=== PATIENT | female | born 1995 ===

== ENCOUNTER 2017-06-22 10:28 | Emergency (ER) | payer MEDICAID ==
[2017-06-22 10:35] VITALS: BMI 17.6
[2017-06-22] MEDS ORDERED: Sodium Chloride 0.9% 1,000 ML IV STA (11:07)
--- NOTE | 2017-06-22 11:14 | ED PDOC ---
HPI: General Adult Time Seen by Provider: 06/22/17 10:30 Chief Complaint (Nursing): GI Problem Chief Complaint (Provider): generalized weakness History Per: Patient History/Exam Limitations: no limitations Additional Complaint(s): Snehal Perez is a 21 year old female, with no previous medical history, who presents to the ED for the evaluation of generalized weakness associated with nausea and vomiting after taking a pain medication from [place] for her menstrual cramps this morning. She denies any fever or chills. She reports craps have resolved with the medication. PMD: none provided Past Medical History Reviewed: Historical Data, Nursing Documentation, Vital Signs Vital Signs: Last Vital Signs Temp 98.4 F 06/22/17 14:14 Pulse 68 06/22/17 14:14 Resp 18 06/22/17 14:14 BP 107/64 06/22/17 14:14 Pulse Ox 99 06/22/17 14:14 - Medical History PMH: No Chronic Diseases, Obstructive Bowel - Surgical History Surgical History: No Surg Hx - Family History Family History: States: Unknown Family Hx - Social History Current smoker - smoking cessation education provided: No Alcohol: None Drugs: Denies - Immunization History Hx Tetanus Toxoid Vaccination: No Hx Influenza Vaccination: No Hx Pneumococcal Vaccination: No - Home Medications Home Medications: Ambulatory Orders Medication Instructions Recorded No Known Home Med 06/22/17 - Allergies Allergies/Adverse Reactions: Allergies Allergy/AdvReac Type Severity Reaction Status Date / Time No Known Allergies Allergy Verified 06/22/17 10:40 Review of Systems ROS Statement: Except As Marked, All Systems Reviewed And Found Negative Constitutional: Positive for: Weakness (generalized). Negative for: Fever, Chills Gastrointestinal: Positive for: Nausea, Vomiting. Negative for: Abdominal Pain Physical Exam - Reviewed Nursing Documentation Reviewed: Yes Vital Signs Reviewed: Yes - Physical Exam Appears: Positive for: Non-toxic, No Acute Distress. Negative for: Well ( appears weak) Head Exam: Positive for: ATRAUMATIC, NORMAL INSPECTION, NORMOCEPHALIC Skin: Positive for: Normal Color, Warm, DRY Eye Exam: Positive for: EOMI, Normal appearance, PERRL ENT: Positive for: Normal ENT Inspection Neck: Positive for: Normal, Painless ROM Cardiovascular/Chest: Positive for: Regular Rate, Rhythm Respiratory: Positive for: CNT, Normal Breath Sounds Gastrointestinal/Abdominal: Positive for: Normal Exam, Bowel Sounds, Soft Back: Positive for: Normal Inspection Extremity: Positive for: Normal ROM Neurologic/Psych: Positive for: Alert, Oriented - Laboratory Results Result Diagrams: 06/22/17 11:18 06/22/17 11:18 - ECG O2 Sat by Pulse Oximetry: 100 (RA) Pulse Ox Interpretation: Normal Medical Decision Making Medical Decision Making: Initial Impression: generalized weakness r/o UTI vs anemia Initial Plan: * urine culture * urinalysis * zofran 4mg IV * IV NS 1,000 ml at 999 ml/hr * urine * labs * reevaluation Reevaluation- pt feels better, tolerating po. urine shows pt is menstruating labs basically ok pt feels better and vitals stable Scribe Attestation: Documented by Rebecca Arita, acting as a scribe for Lita Britton MD. Provider Scribe Attestation: All medical record entries made by the Scribe were at my direction and personally dictated by me. I have reviewed the chart and agree that the record accurately reflects my personal performance of the history, physical exam, medical decision making, and the department course for this patient. I have also personally directed, reviewed, and agree with the discharge instructions and disposition. Disposition - Clinical Impression Clinical Impression: General weakness - Patient ED Disposition Is Patient to be Admitted: No Counseled Patient/Family Regarding: Studies Performed, Diagnosis, Need For Followup - Disposition Referrals: [facility] [Outside] [facility] [Outside] Disposition: Routine/Home Disposition Time: 12:00 Condition: IMPROVED Additional Instructions: follow up with your primary doctor in 1-2 days return to the ED with any worsening or concerning symptoms. Instructions: Weakness (ED) Forms: [employer] (Estonian)
[2017-06-22 11:29] LABS: BASO % 0.5 % (0.0-2.0); EOS # 0.2 K/uL (0.0-0.7); EOS % 2.2 % (0.0-4.0); HEMOGLOBIN 12.6 g/dL (12.0-16.0); LYMPH % 12.9 % (20.0-40.0); MEAN CELL VOLUME 85.6 fl (81.0-99.0); MEAN CORPUSCULAR HGB CONC 32.7 g/dL (33.0-37.0); MEAN PLATELET VOLUME 9.3 fl (7.2-11.7); MONO # 0.5 K/uL (0.0-0.8); MONO % 6.1 % (0.0-10.0); NEUT % 78.3 % (50.0-75.0); RBC 4.51 Mil/uL (3.80-5.20); RED CELL DISTRIBUTION WIDTH 15.2 % (11.5-14.5); WHITE BLOOD COUNT 7.7 K/uL (4.8-10.8)
[2017-06-22 11:37] LABS: ALB/GLOB RATIO 1.4 (1.0-2.1); ALBUMIN 4.5 g/dL (3.5-5.0); ALT/SGPT 19 U/L (9-52); AST/SGOT 25 U/L (14-36); BLOOD UREA NITROGEN 12 mg/dl (7-17); CALCIUM 9.1 mg/dL (8.4-10.2); GFR AFRICAN-AMERICAN > 60; GFR NON-AFRICAN AMERICAN > 60
[2017-06-22 11:41] LABS: SQUAMOUS EPITHIAL 4 /hpf (0-5); URINE BACTERIA MOD (<OCC); URINE BILIRUBIN NEGATIVE (NEGATIVE); URINE BLOOD LARGE (NEGATIVE); URINE CLARITY TURBID (Clear); URINE COLOR RED (YELLOW); URINE GLUCOSE (UA) NEG (Normal); URINE LEUKOCYTE ESTERASE NEG Leu/uL (Negative); URINE NITRATE NEGATIVE (NEGATIVE); URINE PROTEIN 100 mg/dL (NEGATIVE); URINE UROBILINOGEN 0.2-1.0 mg/dL (0.2-1.0)
[2017-06-22 14:15] VITALS: BP 107/64; PULSE 68; RESP 18; TEMP 98.4
[2017-06-22 16:54] VITALS: O2SAT 100
== END 2017-06-22 14:31 | disposition home or self-care (01) ==
LOC: H.ER 10:28
DX: M62.81 Muscle weakness (generalized) (principal)

== ENCOUNTER 2017-11-15 10:24 | Emergency (ER) | payer MEDICAID ==
[2017-11-15 10:24] VITALS: BMI 17.6
[2017-11-15 10:35] VITALS: RESP 17; O2SAT 98
--- NOTE | 2017-11-15 11:59 | ED PDOC ---
HPI: Psych/Substance Abuse Time Seen by Provider: 11/15/17 10:37 Chief Complaint (Nursing): Psychiatric Evaluation Chief Complaint (Provider): jaun ambriz Additional Complaint(s): 22yo F in Ed for eval -sent a text to her mother stating she didn't feel well and wanted to -states she didn't mean that and states that she wanted to talk to someone. states she broke up with her boyfriend of 7 years. denies SI/ HI Past Medical History Reviewed: Historical Data, Nursing Documentation, Vital Signs Vital Signs: Last Vital Signs Temp 98 F 11/15/17 10:30 Pulse 67 11/15/17 10:30 Resp 17 11/15/17 10:30 BP Pulse Ox 98 11/15/17 10:30 - Medical History PMH: Obstructive Bowel - Family History Family History: States: Unknown Family Hx - Immunization History Hx Tetanus Toxoid Vaccination: No Hx Influenza Vaccination: No Hx Pneumococcal Vaccination: No - Home Medications Home Medications: Ambulatory Orders Medication Instructions Recorded No Known Home Med 06/22/17 - Allergies Allergies/Adverse Reactions: Allergies Allergy/AdvReac Type Severity Reaction Status Date / Time No Known Allergies Allergy Verified 06/22/17 10:40 Review of Systems ROS Statement: Except As Marked, All Systems Reviewed And Found Negative Genitourinary Female: Negative for: Dysuria Physical Exam - Reviewed Nursing Documentation Reviewed: Yes Vital Signs Reviewed: Yes - Physical Exam Appears: Positive for: Well, Non-toxic, No Acute Distress Skin: Positive for: Normal Color, Warm, DRY Cardiovascular/Chest: Positive for: Regular Rate, Rhythm Respiratory: Positive for: CNT, Normal Breath Sounds Neurologic/Psych: Positive for: Alert, Oriented, Mood/Affect - ECG O2 Sat by Pulse Oximetry: 98 - Progress ED Course And Treament: Pt is stable for d/c under adjustment d/o under MD Princess Medical Decision Making Medical Decision Making: PT is stable for d/c Disposition - Clinical Impression Clinical Impression: Adjustment disorder - Patient ED Disposition Is Patient to be Admitted: No Counseled Patient/Family Regarding: Need For Followup - Disposition Disposition: Routine/Home Disposition Time: 12:01 Condition: STABLE Instructions: Mood Disorders (ED)
[2017-11-15 12:28] VITALS: BP 178/70; PULSE 78; TEMP 97
== END 2017-11-15 12:29 | disposition home or self-care (01) ==
LOC: H.ER 10:24
DX: F43.20 Adjustment disorder, unspecified (principal); Z00.8 Encounter for other general examination

== ENCOUNTER 2018-01-03 20:20 | Emergency (ER) | payer MEDICAID ==
[2018-01-03 20:21] VITALS: BMI 17.6
[2018-01-03 20:41] VITALS: BP 132/75; PULSE 72; RESP 16; TEMP 99.3; O2SAT 99
--- NOTE | 2018-01-03 20:58 | ED PDOC ---
HPI: Back Time Seen by Provider: 01/03/18 20:51 Chief Complaint (Nursing): Back Pain Chief Complaint (Provider): Back Pain History Per: Patient (() History/Exam Limitations: no limitations Onset/Duration Of Symptoms: Other (x 1 week) Current Symptoms Are (Timing): Still Present Additional Complaint(s): Snehal is a 22 year old female who presents to the emergency department complaining of intermittent right lower back pain for 1 week. Patient states she has similar symptoms from a kidney infection she had 5 years ago. Patient states she took 2 Advil 200 mg at 11:00 today. Denies trouble urinating or fever. PMD: Bk [facility] Past Medical History Reviewed: Historical Data, Nursing Documentation, Vital Signs Vital Signs: Last Vital Signs Temp 99.3 F 01/03/18 20:33 Pulse 72 01/03/18 20:33 Resp 16 01/03/18 20:33 BP 132/75 01/03/18 20:33 Pulse Ox 99 01/03/18 20:33 - Medical History PMH: Obstructive Bowel Denies: Diabetes, Hepatitis, HIV, HTN, Seizures, Sexually Transmitted Disease - Surgical History Surgical History: No Surg Hx - Family History Family History: States: Unknown Family Hx - Immunization History Hx Tetanus Toxoid Vaccination: No Hx Influenza Vaccination: No Hx Pneumococcal Vaccination: No - Home Medications Home Medications: Ambulatory Orders Medication Instructions Recorded Naproxen 1 tab PO Q12 PRN #14 tab 01/03/18 diaZEpam [Valium] 5 mg PO Q6 PRN #5 tab 01/03/18 - Allergies Allergies/Adverse Reactions: Allergies Allergy/AdvReac Type Severity Reaction Status Date / Time No Known Allergies Allergy Verified 06/22/17 10:40 Review of Systems ROS Statement: Except As Marked, All Systems Reviewed And Found Negative Constitutional: Negative for: Fever Genitourinary Female: Negative for: Other (Trouble urinating) Musculoskeletal: Positive for: Back Pain (Right lower) Physical Exam - Reviewed Nursing Documentation Reviewed: Yes Vital Signs Reviewed: Yes - Physical Exam Appears: Positive for: Well Head Exam: Positive for: ATRAUMATIC, NORMAL INSPECTION, NORMOCEPHALIC Skin: Positive for: Normal Color, Warm, Dry Eye Exam: Positive for: Normal appearance, EOMI, PERRL ENT: Positive for: Normal ENT Inspection Neck: Positive for: Normal Cardiovascular/Chest: Positive for: Regular Rate, Rhythm Respiratory: Positive for: Normal Breath Sounds. Negative for: Respiratory Distress Gastrointestinal/Abdominal: Positive for: Normal Exam, Bowel Sounds. Negative for: Tenderness Back: Positive for: Other (Right Paralumbar Muscular Pain) Extremity: Positive for: Normal ROM. Negative for: Deformity Neurologic/Psych: Positive for: Alert, Oriented. Negative for: Motor/Sensory Deficits - Laboratory Results Result Diagrams: 01/03/18 22:00 01/03/18 22:00 Urine POC: Negative Urine dip results: Negative for: Leukocyte Esterase, Blood, Nitrate, Ketones, Glucose, Bilirubin, Protein - ECG O2 Sat by Pulse Oximetry: 99 (RA) Pulse Ox Interpretation: Normal - Progress ED Course And Treament: TORADOL 30 MG IM X 1 DOSE VALIUM 5 MG X 1 DOSE PATIENT ADAMANT THAT SHE HAS H/O PYELONEPHRITIS THAT BEGAN SIMILAR TO TODAYS PRESENTATION/PAIN us of kidneY: FINDINGS: The right kidney measures 10 cm in length. The left kidney measures 9.5 cm in length. No masses. No hydronephrosis. No calculi. Nonvisualization of the ureteral jets. IMPRESSION: No acute findings. Thank you for allowing us to participate in the care of your patient. Dictated and Authenticated by: Rebecca Jaimes MD Medical Decision Making Medical Decision Making: Time: 20:53 Plan: - Urine Culture - Urinalysis - ED Urine - ED Urine Dipstick Time: 21:14 - Toradol 30 mg IM - Valium 5 mg PO Patient would like further testing for possible kidney infection. Scribe Attestation: Documented by Abiel Mann, acting as a scribe for Lucia Fernandez PA-C. Provider Scribe Attestation: All medical record entries made by the Scribe were at my direction and personally dictated by me. I have reviewed the chart and agree that the record accurately reflects my personal performance of the history, physical exam, medical decision making, and the department course for this patient. I have also personally directed, reviewed, and agree with the discharge instructions and disposition. Disposition - Clinical Impression Clinical Impression: Muscle strain - Patient ED Disposition Is Patient to be Admitted: No - Disposition Referrals: [facility] [Outside] Disposition: Routine/Home Disposition Time: 23:31 Condition: FAIR Prescriptions: diaZEpam [Valium] 5 mg PO Q6 PRN #5 tab PRN Reason: Muscle Spasm Naproxen 1 tab PO Q12 PRN #14 tab PRN Reason: Pain, Moderate (4-7) Instructions: Muscle Strain (ED) Forms: [facility] (Bengali), [facility] ED School/Work Excuse
[2018-01-03 22:00] LABS: SQUAMOUS EPITHIAL 1 /hpf (0-5); URINE BACTERIA OCC (<OCC); URINE BILIRUBIN NEGATIVE (NEGATIVE); URINE BLOOD NEGATIVE (NEGATIVE); URINE CLARITY CLEAR (Clear); URINE COLOR STRAW (YELLOW); URINE GLUCOSE (UA) NEG (Normal); URINE LEUKOCYTE ESTERASE NEG Leu/uL (Negative); URINE NITRATE NEGATIVE (NEGATIVE); URINE PROTEIN NEGATIVE (NEGATIVE); URINE UROBILINOGEN 0.2-1.0 mg/dL (0.2-1.0)
[2018-01-03 22:13] LABS: BASO # 0.1 K/uL (0.0-0.2); BASO % 0.9 % (0.0-2.0); EOS # 0.2 K/uL (0.0-0.7); EOS % 3.2 % (0.0-4.0); LYMPH # 1.9 K/uL (1.0-4.3); LYMPH % 26.5 % (20.0-40.0); MEAN CELL VOLUME 86.1 fl (81.0-99.0); MEAN CORPUSCULAR HEMOGLOBIN 27.2 pg (27.0-31.0); MEAN CORPUSCULAR HGB CONC 31.6 g/dL (33.0-37.0); MEAN PLATELET VOLUME 9.8 fl (7.2-11.7); MONO # 0.7 K/uL (0.0-0.8); MONO % 9.3 % (0.0-10.0); NEUT # 4.3 K/uL (1.8-7.0); NEUT % 60.1 % (50.0-75.0); NRBC % 0.1 % (0.0-0.0); RBC 4.77 Mil/uL (3.80-5.20); RED CELL DISTRIBUTION WIDTH 14.8 % (11.5-14.5); WHITE BLOOD COUNT 7.1 K/uL (4.8-10.8)
[2018-01-03 22:23] LABS: BLOOD UREA NITROGEN 10 mg/dl (7-17); CALCIUM 9.2 mg/dL (8.4-10.2); GFR AFRICAN-AMERICAN > 60; GFR NON-AFRICAN AMERICAN > 60
--- NOTE | 2018-01-03 23:21 | US ---
EXAM: US Retroperitoneal Ltd Kidney EXAM DATE/TIME: 01/03/2018 9:29 PM CLINICAL HISTORY: 22 years old, female; Pain; Abdominal pain; Other: Rt side back pain as per pt. ; Additional info: Evaluate for hydronephrosis TECHNIQUE: Real-time ultrasound of the retroperitoneal ltd kidney with image documentation. COMPARISON: US - ABDOMEN LIMITED 2016-02-24 15:32 FINDINGS: The right kidney measures 10 cm in length. The left kidney measures 9.5 cm in length. No masses. No hydronephrosis. No calculi. Nonvisualization of the ureteral jets. IMPRESSION: No acute findings.
== END 2018-01-03 23:59 | disposition home or self-care (01) ==
LOC: H.ER 20:20
DX: M54.9 Dorsalgia, unspecified (principal)
CPT/HCPCS: 76770; 80048; 81003; 81025; 85025; 87086; 96374; 99282; J1885

== ENCOUNTER 2018-03-27 08:44 | Emergency (ER) | payer MEDICAID ==
[2018-03-27 08:45] VITALS: BMI 17.6
[2018-03-27 08:54] VITALS: PULSE 100; RESP 20; TEMP 97.8; O2SAT 98
[2018-03-27] MEDS ORDERED: Oxycodone/Acetaminophen 5/325 mg Tab ONE (09:44)
[2018-03-27] MEDS: Oxycodone/Acetaminophen 5/325 mg Tab PO STA (09:45)
--- NOTE | 2018-03-27 09:53 | ED PDOC ---
Upper Extremity Pain/Injury Time Seen by Provider: 03/27/18 09:17 Chief Complaint (Nursing): Upper Extremity Problem/Injury Chief Complaint (Provider): Right wrist pain History Per: Patient History/Exam Limitations: no limitations Onset/Duration Of Symptoms: Days (x1) Current Symptoms Are (Timing): Still Present Quality: "Pain" Exacerbating Factor(s): Movement Additional Complaint(s): Snehal Perez is a 22 year old female, with no significant past medical history, who presents to the emergency department complaining of right wrist pain onset since yesterday. Patient states pain is worst with movement. She took Naproxen with no relief of pain. Patient reports she had a similar pain x1 week ago but it resolved, and mother states patient used to have a similar pain as a kid. She denies any trauma or injury. No further medical complaints. PMD: None provided. Past Medical History Reviewed: Historical Data, Nursing Documentation, Vital Signs Vital Signs: Last Vital Signs Temp 97.8 F 03/27/18 08:52 Pulse 100 H 03/27/18 08:52 Resp 20 03/27/18 08:52 BP Pulse Ox 98 03/27/18 08:52 - Medical History PMH: Obstructive Bowel Denies: Diabetes, Hepatitis, HIV, HTN, Seizures, Sexually Transmitted Disease - Surgical History Surgical History: No Surg Hx - Family History Family History: States: Unknown Family Hx - Living Arrangements Living Arrangements: With Family - Social History Current smoker - smoking cessation education provided: No Alcohol: None Drugs: Denies - Immunization History Hx Tetanus Toxoid Vaccination: No Hx Influenza Vaccination: No Hx Pneumococcal Vaccination: No - Home Medications Home Medications: Ambulatory Orders Medication Instructions Recorded Naproxen 1 tab PO Q12 PRN #14 tab 01/03/18 diaZEpam [Valium] 5 mg PO Q6 PRN #5 tab 01/03/18 Acetaminophen with Codeine 1 tab PO Q6H PRN #5 tab 03/27/18 [Tylenol with Codeine No. 3 300 mg-30 mg] Naproxen [Naprosyn] 500 mg PO BID PRN #15 tablet 03/27/18 - Allergies Allergies/Adverse Reactions: Allergies Allergy/AdvReac Type Severity Reaction Status Date / Time No Known Allergies Allergy Verified 03/27/18 08:59 Review of Systems ROS Statement: Except As Marked, All Systems Reviewed And Found Negative Musculoskeletal: Positive for: Hand Pain (right wrist) Physical Exam - Reviewed Nursing Documentation Reviewed: Yes Vital Signs Reviewed: Yes - Physical Exam Appears: Positive for: Non-toxic, No Acute Distress Head Exam: Positive for: ATRAUMATIC, NORMOCEPHALIC Skin: Positive for: Normal Color, Warm, Dry Eye Exam: Positive for: Normal appearance Neck: Positive for: Painless ROM Respiratory: Negative for: Respiratory Distress Extremity: Positive for: Tenderness (right wrist and posterior thumb ). Negative for: Deformity, Swelling Neurologic/Psych: Positive for: Alert, Oriented. Negative for: Motor/Sensory Deficits - ECG O2 Sat by Pulse Oximetry: 98 (RA) Pulse Ox Interpretation: Normal Medical Decision Making Medical Decision Making: Initial Impression: wrist pain Initial Plan: --Urine --Percocet 5/325 mg tab 1 tab PO --Toradol 30 mg IM --Hand right 3 views [RAD] --Wrist, right 3 views [RAD] --Reevaluation 10:16 Wrist X-Ray FINDINGS: BONES: No acute fracture. JOINTS: Unremarkable. SOFT TISSUES: Normal. OTHER FINDINGS: None. IMPRESSION: No demonstrated fracture or dislocation. 10:16 Hand X-Ray FINDINGS: BONES: No acute fracture. JOINTS: Unremarkable. SOFT TISSUES: Normal. OTHER FINDINGS: None. IMPRESSION: No demonstrated fracture dislocation. Wrist splint placed. Scribe Attestation: Documented by Maninder Green, acting as a scribe for Rebecca Ashraf MD Provider Scribe Attestation: All medical record entries made by the Scribe were at my direction and personally dictated by me. I have reviewed the chart and agree that the record accurately reflects my personal performance of the history, physical exam, medical decision making, and the department course for this patient. I have also personally directed, reviewed, and agree with the discharge instructions and disposition. Disposition - Clinical Impression Clinical Impression: Wrist pain, acute - Disposition Referrals: Tiffanie Sellers MD [Family Provider] - Condition: IMPROVED Prescriptions: Acetaminophen with Codeine [Tylenol with Codeine No. 3 300 mg-30 mg] 1 tab PO Q6H PRN #5 tab PRN Reason: Pain, Severe (8-10) Naproxen [Naprosyn] 500 mg PO BID PRN #15 tablet PRN Reason: Pain, Moderate (4-7) Instructions: Joint Pain Forms: [facility] (Albanian), [facility] ED School/Work Excuse
--- NOTE | 2018-03-27 10:18 | RAD ---
PROCEDURE: Right Wrist Radiographs. HISTORY: Wrist pain COMPARISON: None. FINDINGS: BONES: No acute fracture. JOINTS: Unremarkable. SOFT TISSUES: Normal. OTHER FINDINGS: None. IMPRESSION: No demonstrated fracture or dislocation.
== END 2018-03-27 11:33 | disposition home or self-care (01) ==
LOC: H.ER 08:44
DX: M25.531 Pain in right wrist (principal)
CPT/HCPCS: 29125; 73110; 73130; 81025; 96372; 99284; J1885

== ENCOUNTER 2019-03-17 06:12 | Emergency (ER) | payer MEDICAID, OTHER ==
[2019-03-17 06:21] VITALS: BMI 18.7
[2019-03-17 06:25] VITALS: TEMP 98.5
[2019-03-17] MEDS ORDERED: Iohexol 240 (50 ml) PO ONE (06:52)
--- NOTE | 2019-03-17 06:55 | ED PDOC ---
HPI: Abdomen Time Seen by Provider: 03/17/19 06:28 Chief Complaint (Nursing): Abdominal Pain History Per: Patient History/Exam Limitations: no limitations Onset/Duration Of Symptoms: Days (1), Persistent Outside of [place] travel?: No Current Symptoms Are (Timing): Still Present Severity: Moderate Pain Scale Rating Of: 4 Location Of Pain/Discomfort: Diffuse, RLQ Quality Of Discomfort: Dull Associated Symptoms: denies: Fever, Nausea, Vomiting, Diarrhea, Loss Of Appetite, Constipation, Urinary Symptoms Exacerbating Factors: Movement Alleviating Factors: None Last Bowel Movement: Yesterday Abnormal Vaginal Bleeding: No Last Menstral Period: now Past Medical History Reviewed: Historical Data, Nursing Documentation, Vital Signs Vital Signs: Last Vital Signs Temp 98.5 F 03/17/19 06:21 Pulse 92 H 03/17/19 06:21 Resp 18 03/17/19 06:21 BP 109/64 03/17/19 06:21 Pulse Ox 98 03/17/19 06:21 - Medical History PMH: Obstructive Bowel Denies: Diabetes, Hepatitis, HIV, HTN, Seizures, Sexually Transmitted Disease - Surgical History Surgical History: No Surg Hx - Family History Family History: States: Unknown Family Hx - Immunization History Hx Tetanus Toxoid Vaccination: No Hx Influenza Vaccination: No Hx Pneumococcal Vaccination: No - Home Medications Home Medications: Ambulatory Orders Medication Instructions Recorded Naproxen 1 tab PO Q12 PRN #14 tab 01/03/18 diaZEpam [Valium] 5 mg PO Q6 PRN #5 tab 01/03/18 Acetaminophen with Codeine 1 tab PO Q6H PRN #5 tab 03/27/18 [Tylenol with Codeine No. 3 300 mg-30 mg] Naproxen [Naprosyn] 500 mg PO BID PRN #15 tablet 03/27/18 Naproxen [Naprosyn] 500 mg PO Q12H #20 tab 03/17/19 - Allergies Allergies/Adverse Reactions: Allergies Allergy/AdvReac Type Severity Reaction Status Date / Time No Known Allergies Allergy Verified 03/17/19 06:21 Review of Systems ROS Statement: Except As Marked, All Systems Reviewed And Found Negative Physical Exam - Reviewed Nursing Documentation Reviewed: Yes Vital Signs Reviewed: Yes - Physical Exam Appears: Positive for: Uncomfortable Head Exam: Positive for: ATRAUMATIC, NORMAL INSPECTION Skin: Positive for: Normal Color, Warm, Dry Eye Exam: Positive for: Normal appearance, EOMI ENT: Positive for: Normal ENT Inspection Neck: Positive for: Normal, Painless ROM Cardiovascular/Chest: Positive for: Regular Rate, Rhythm Respiratory: Positive for: Normal Breath Sounds. Negative for: Respiratory Distress Gastrointestinal/Abdominal: Positive for: Soft, Tenderness (RLQ) Back: Positive for: Normal Inspection. Negative for: L CVA Tenderness, R CVA Tenderness Extremity: Positive for: Normal ROM Neurological/Psych: Positive for: Awake, Alert - Laboratory Results Result Diagrams: 03/17/19 06:50 03/17/19 06:50 - ECG O2 Sat by Pulse Oximetry: 98 Medical Decision Making Medical Decision Making: Impression Abdominal pain Diff include Acute appendicitis, ovarian cyst with rupture, ovarian torsion, Preg negative. Plan Labs Udip CT abdomen with PO and IV contrast IVF Toradol IV reassess Disposition - Clinical Impression Clinical Impression: Abdominal pain, Ovarian cyst - Patient ED Disposition Is Patient to be Admitted: Transfer of Care Counseled Patient/Family Regarding: Studies Performed, Diagnosis - Disposition [facility] Disposition: Transfer of Care Disposition Time: 07:00 Condition: FAIR Prescriptions: Naproxen [Naprosyn] 500 mg PO Q12H #20 tab Instructions: Ovarian Cysts Forms: [employer] (Beninese), [facility] ED School/Work Excuse Patient Signed Over To: Toño Hendricks
[2019-03-17] MEDS ORDERED: Sodium Chloride 0.9% 1,000 ML IV STA (06:57)
--- NOTE | 2019-03-17 07:06 | ED PDOC ---
- Laboratory Results Result Diagrams: 03/17/19 06:50 03/17/19 06:50 - ECG O2 Sat by Pulse Oximetry: 98 (RA) Pulse Ox Interpretation: Normal - Progress Re-evaluation Time: 10:19 Condition: Improved Medical Decision Making Medical Decision Making: Time: 0700 --Patient care endorsed by Dr. Guthrie pending full ER work up. Time: 0920 Transvaginal US FINDINGS: UTERUS: Measures 7.8 x 5.3 x 3.6 cm. Normal in size and appearance. No fibroid or other mass lesion seen. ENDOMETRIUM: Measures 8 mm in diameter. Unremarkable. CERVIX: No cervical abnormality identified. RIGHT OVARY: Measures 4.3 x 3.4 x 2.9 cm. There is evidence of a complex right ovarian cyst measuring 2.5 x 2.1 x 2.5 centimeters. Finding may reflect hemorrhagic cyst but should be correlated clinically. Follow-up ultrasound would be suggested. Normal Doppler flow was appreciated in the peripheral right ovary. There is no ultrasound evidence of torsion. LEFT OVARY: Measures 2.8 x 1.5 x 2.3 cm. No solid mass. Normal flow. A few tiny follicles are noted. FREE FLUID: No significant free fluid noted. OTHER FINDINGS: None. IMPRESSION: Complex right ovarian cyst which may suggest hemorrhagic cyst. Endometrioma could not be excluded on this examination. No ultrasound evidence of torsion. Time: 1006 CT abd and Pelvis FINDINGS: LOWER THORAX: Unremarkable. LIVER: Unremarkable. No gross lesion or ductal dilatation. GALLBLADDER AND BILE DUCTS: Unremarkable. PANCREAS: Unremarkable. No gross lesion or ductal dilatation. SPLEEN: Unremarkable. ADRENALS: Unremarkable. No mass. KIDNEYS AND URETERS: Unremarkable. No hydronephrosis. No solid mass. VASCULATURE: Unremarkable. No aortic aneurysm. No aortic atherosclerotic calcification or mural plaque present. BOWEL: Unremarkable. No obstruction. No gross mural thickening. APPENDIX: Normal appendix. PERITONEUM: No significant free fluid. No pneumoperitoneum appreciated. LYMPH NODES: Unremarkable. No enlarged lymph nodes. BLADDER: Unremarkable. REPRODUCTIVE: There is evidence of a posterior right adnexal low-density cystic structure seen on the ultrasound examination of the same day. This represents a right ovarian cyst. On the CT scan is measures 2.4 x 1.8 by 2.4 centimeters. Ultrasound measurements are more than likely more sensitive. No left adnexal masses are seen. Uterus is normal in size. BONES: No acute fracture. OTHER FINDINGS: None. IMPRESSION: Right ovarian cyst seen on ultrasound exam of the same day. Please see ultrasound report. No CT scan evidence of appendicitis no evidence of bowel obstruction or colitis. - Scribe Attestation: Documented by Charli López, acting as a scribe Ruth Hendricks MD. Provider Scribe Attestation: All medical record entries made by the Scribe were at my direction and personally dictated by me. I have reviewed the chart and agree that the record accurately reflects my personal performance of the history, physical exam, medical decision making, and the department course for this patient. I have also personally directed, reviewed, and agree with the discharge instructions and disposition Disposition - Clinical Impression Clinical Impression: Abdominal pain, Ovarian cyst - POA Present On Arrival: None - Disposition [facility]] Disposition: Routine/Home Disposition Time: 10:20 Condition: FAIR Prescriptions: Naproxen [Naprosyn] 500 mg PO Q12H #20 tab Instructions: Ovarian Cysts Forms: [employer] (Albanian)
[2019-03-17 07:14] LABS: BASO % 0.4 % (0.0-2.0); EOS # 0.2 K/uL (0.0-0.7); EOS % 1.9 % (0.0-4.0); HEMOGLOBIN 12.7 g/dL (12.0-16.0); LYMPH # 1.2 K/uL (1.0-4.3); LYMPH % 10.1 % (20.0-40.0); MEAN CELL VOLUME 86.7 fl (81.0-99.0); MEAN CORPUSCULAR HEMOGLOBIN 27.9 pg (27.0-31.0); MEAN CORPUSCULAR HGB CONC 32.2 g/dL (33.0-37.0); MEAN PLATELET VOLUME 9.7 fl (7.2-11.7); MONO # 0.7 K/uL (0.0-0.8); NEUT # 9.8 K/uL (1.8-7.0); NEUT % 81.6 % (50.0-75.0); RBC 4.54 Mil/uL (3.80-5.20)
[2019-03-17] MEDS ORDERED: Iohexol 240 (50 ml) ONE (07:14)
[2019-03-17 07:22] LABS: INR 1.2; PROTHROMBIN TIME 13.5 Seconds (9.8-13.1)
[2019-03-17 07:23] LABS: ALB/GLOB RATIO 1.3 (1.0-2.1); ALBUMIN 4.8 g/dL (3.5-5.0); ALT/SGPT 13 U/L (9-52); AST/SGOT 22 U/L (14-36); BLOOD UREA NITROGEN 14 mg/dl (7-17); CALCIUM 9.8 mg/dL (8.4-10.2); GFR NON-AFRICAN AMERICAN > 60
[2019-03-17 07:24] LABS: PARTIAL THROMBOPLASTIN TIME 33.5 Seconds (25.6-37.1)
[2019-03-17] MEDS ORDERED: Sodium Chloride 0.9% 50 ML IV ONE (09:17)
[2019-03-17] MEDS ORDERED: Iohexol 300 100 ML IJ ONE (09:17)
--- NOTE | 2019-03-17 10:01 | US ---
Date of service: 03/17/2019 HISTORY: RLQ pain COMPARISON: None available. TECHNIQUE: Real-time transvaginal ultrasound examination of the pelvis was performed for the right lower quadrant pain FINDINGS: UTERUS: Measures 7.8 x 5.3 x 3.6 cm. Normal in size and appearance. No fibroid or other mass lesion seen. ENDOMETRIUM: Measures 8 mm in diameter. Unremarkable. CERVIX: No cervical abnormality identified. RIGHT OVARY: Measures 4.3 x 3.4 x 2.9 cm. There is evidence of a complex right ovarian cyst measuring 2.5 x 2.1 x 2.5 centimeters. Finding may reflect hemorrhagic cyst but should be correlated clinically. Follow-up ultrasound would be suggested. Normal Doppler flow was appreciated in the peripheral right ovary. There is no ultrasound evidence of torsion. LEFT OVARY: Measures 2.8 x 1.5 x 2.3 cm. No solid mass. Normal flow. A few tiny follicles are noted. FREE FLUID: No significant free fluid noted. OTHER FINDINGS: None. IMPRESSION: Complex right ovarian cyst which may suggest hemorrhagic cyst. Endometrioma could not be excluded on this examination. No ultrasound evidence of torsion.
--- NOTE | 2019-03-17 10:10 | CT ---
Date of service: 03/17/2019 PROCEDURE: CT Abdomen and Pelvis with contrast HISTORY: abdominal pain RLQ tenderness COMPARISON: 02/24/2016 TECHNIQUE: Contrast dose: 95 mL Radiation dose: Total exam DLP = 245.46 mGy-cm. This CT exam was performed using one or more of the following dose reduction techniques: Automated exposure control, adjustment of the mA and/or kV according to patient size, and/or use of iterative reconstruction technique. FINDINGS: LOWER THORAX: Unremarkable. LIVER: Unremarkable. No gross lesion or ductal dilatation. GALLBLADDER AND BILE DUCTS: Unremarkable. PANCREAS: Unremarkable. No gross lesion or ductal dilatation. SPLEEN: Unremarkable. ADRENALS: Unremarkable. No mass. KIDNEYS AND URETERS: Unremarkable. No hydronephrosis. No solid mass. VASCULATURE: Unremarkable. No aortic aneurysm. No aortic atherosclerotic calcification or mural plaque present. BOWEL: Unremarkable. No obstruction. No gross mural thickening. APPENDIX: Normal appendix. PERITONEUM: No significant free fluid. No pneumoperitoneum appreciated. LYMPH NODES: Unremarkable. No enlarged lymph nodes. BLADDER: Unremarkable. REPRODUCTIVE: There is evidence of a posterior right adnexal low-density cystic structure seen on the ultrasound examination of the same day. This represents a right ovarian cyst. On the CT scan is measures 2.4 x 1.8 by 2.4 centimeters. Ultrasound measurements are more than likely more sensitive. No left adnexal masses are seen. Uterus is normal in size. BONES: No acute fracture. OTHER FINDINGS: None. IMPRESSION: Right ovarian cyst seen on ultrasound exam of the same day. Please see ultrasound report. No CT scan evidence of appendicitis no evidence of bowel obstruction or colitis.
[2019-03-17 10:32] VITALS: BP 111/69; PULSE 71; RESP 16
[2019-03-17 23:07] VITALS: O2SAT 98
== END 2019-03-17 10:53 | disposition home or self-care (01) ==
LOC: H.ER 06:12
DX: R10.9 Unspecified abdominal pain (principal); N83.201 Unspecified ovarian cyst, right side
CPT/HCPCS: 74177; 76830; 80053; 81025; 85025; 85610; 85730; 86850; 86900; 87040; 96361; 96374; 96375; 99284; J1885; J2270; J2405; J7030; Q9966; Q9967

== ENCOUNTER 2019-03-27 00:18 | Emergency (ER) | payer OTHER ==
[2019-03-27 00:18] VITALS: BMI 18.7
[2019-03-27 02:13] LABS: BASO # 0.1 K/uL (0.0-0.2); BASO % 1.2 % (0.0-2.0); EOS # 0.3 K/uL (0.0-0.7); EOS % 4.2 % (0.0-4.0); HEMOGLOBIN 11.6 g/dL (12.0-16.0); LYMPH # 2.8 K/uL (1.0-4.3); LYMPH % 36.1 % (20.0-40.0); MEAN CELL VOLUME 86.3 fl (81.0-99.0); MEAN CORPUSCULAR HEMOGLOBIN 27.9 pg (27.0-31.0); MEAN CORPUSCULAR HGB CONC 32.4 g/dL (33.0-37.0); MEAN PLATELET VOLUME 9.3 fl (7.2-11.7); MONO # 0.8 K/uL (0.0-0.8); MONO % 10.8 % (0.0-10.0); NEUT # 3.7 K/uL (1.8-7.0); NEUT % 47.7 % (50.0-75.0); NRBC % 0.1 % (0.0-0.0); RBC 4.15 Mil/uL (3.80-5.20); WHITE BLOOD COUNT 7.7 K/uL (4.8-10.8)
[2019-03-27 02:20] LABS: SQUAMOUS EPITHIAL 1 /hpf (0-5); URINE BILIRUBIN NEGATIVE (NEGATIVE); URINE BLOOD NEGATIVE (NEGATIVE); URINE CLARITY CLOUDY (Clear); URINE COLOR YELLOW (YELLOW); URINE GLUCOSE (UA) NEG (NEGATIVE); URINE LEUKOCYTE ESTERASE NEG Leu/uL (Negative); URINE PROTEIN NEGATIVE (NEGATIVE); URINE UROBILINOGEN 0.2-1.0 mg/dL (0.2-1.0)
[2019-03-27 02:26] LABS: BLOOD UREA NITROGEN 16 mg/dl (7-17); CALCIUM 9.1 mg/dL (8.4-10.2); GFR NON-AFRICAN AMERICAN > 60
--- NOTE | 2019-03-27 03:16 | ED PDOC ---
HPI: Abdomen Time Seen by Provider: 03/27/19 01:16 Chief Complaint (Nursing): Abdominal Pain Chief Complaint (Provider): Abdominal Pain History Per: Patient History/Exam Limitations: no limitations Onset/Duration Of Symptoms: Days (x 1 week ) Current Symptoms Are (Timing): Still Present Location Of Pain/Discomfort: RLQ Quality Of Discomfort: "Pain" Additional Complaint(s): 23 year old female, recently diagnosed with a cyst, presents to the ED for continued intermittent right lower quadrant pain. Patient was seen in the ED approximately one week ago and diagnosed with a cyst. She then followed up with her fisherman helper where additional tests were run and the patient was given Naprosyn for pain. Patient was advised to come to the ED if pain persisted or worsened. She is also concerned about infection because she was told that she has an elevated white blood cell count. Denies fever, nausea, vomiting, abnormal stools, and urinary symptoms. PMD: none provided Past Medical History Reviewed: Historical Data, Nursing Documentation, Vital Signs Vital Signs: Last Vital Signs Temp 97.8 F 03/27/19 00:31 Pulse 70 03/27/19 00:31 Resp 16 03/27/19 00:31 BP 118/68 03/27/19 00:31 Pulse Ox 100 03/27/19 00:31 Primary Care Provider: Jyothi Villanueva - Medical History PMH: Obstructive Bowel Denies: Diabetes, Hepatitis, HIV, HTN, Seizures, Sexually Transmitted Disease - Surgical History Surgical History: No Surg Hx - Family History Family History: States: Unknown Family Hx - Immunization History Hx Tetanus Toxoid Vaccination: No Hx Influenza Vaccination: No Hx Pneumococcal Vaccination: No - Home Medications Home Medications: Ambulatory Orders Medication Instructions Recorded Naproxen 1 tab PO Q12 PRN #14 tab 01/03/18 diaZEpam [Valium] 5 mg PO Q6 PRN #5 tab 01/03/18 Acetaminophen with Codeine 1 tab PO Q6H PRN #5 tab 03/27/18 [Tylenol with Codeine No. 3 300 mg-30 mg] Naproxen [Naprosyn] 500 mg PO BID PRN #15 tablet 03/27/18 Naproxen [Naprosyn] 500 mg PO Q12H #20 tab 03/17/19 Ketorolac Tromethamine [Toradol] 10 mg PO BID #20 tab 03/27/19 - Allergies Allergies/Adverse Reactions: Allergies Allergy/AdvReac Type Severity Reaction Status Date / Time No Known Allergies Allergy Verified 03/17/19 06:21 Review of Systems ROS Statement: Except As Marked, All Systems Reviewed And Found Negative Constitutional: Negative for: Fever Gastrointestinal: Positive for: Abdominal Pain (RLQ). Negative for: Nausea, Vomiting, Melena, Hematochezia Genitourinary Female: Negative for: Dysuria, Frequency, Incontinence, Hematuria Physical Exam - Reviewed Nursing Documentation Reviewed: Yes Vital Signs Reviewed: Yes - Physical Exam Appears: Positive for: No Acute Distress Head Exam: Positive for: ATRAUMATIC, NORMAL INSPECTION, NORMOCEPHALIC Skin: Positive for: Normal Color, Warm, Dry Eye Exam: Positive for: EOMI, Normal appearance, PERRL Neck: Positive for: Normal, Painless ROM, Supple Cardiovascular/Chest: Positive for: Regular Rate, Rhythm. Negative for: Murmur Respiratory: Positive for: Normal Breath Sounds. Negative for: Respiratory Distress Gastrointestinal/Abdominal: Positive for: Tenderness (mild RLQ tenderness). Negative for: Mass, Guarding, Rebound Back: Positive for: Normal Inspection. Negative for: L CVA Tenderness, R CVA Tenderness Extremity: Positive for: Normal ROM (x 4). Negative for: Deformity Neurological/Psych: Positive for: Awake, Alert, Normal Tone, Oriented (x 3). Negative for: Motor/Sensory Deficits - Laboratory Results Result Diagrams: 03/27/19 01:57 03/27/19 01:57 Lab Results: Urine Color Yellow (YELLOW) 03/27/19 01:57 Urine Clarity Cloudy (Clear) 03/27/19 01:57 Urine pH 7.0 (5.0-8.0) 03/27/19 01:57 Ur Specific [place] 1.018 (1.003-1.030) 03/27/19 01:57 Urine Protein Negative mg/dL (NEGATIVE) 03/27/19 01:57 Urine Glucose (UA) Neg mg/dL (NEGATIVE) 03/27/19 01:57 Urine Ketones Negative mg/dL (NEGATIVE) 03/27/19 01:57 Urine Blood Negative (NEGATIVE) 03/27/19 01:57 Urine Nitrate Negative (NEGATIVE) 03/27/19 01:57 Urine Bilirubin Negative (NEGATIVE) 03/27/19 01:57 Urine Urobilinogen 0.2-1.0 mg/dL (0.2-1.0) 03/27/19 01:57 Ur Leukocyte Esterase Neg Derrek/uL (Negative) 03/27/19 01:57 Urine RBC (Auto) 5 /hpf (0-3) H 03/27/19 01:57 Urine Microscopic WBC 2 /hpf (0-5) 03/27/19 01:57 Ur Squamous Epith Cells 1 /hpf (0-5) 03/27/19 01:57 Urine Yeast (Budding) Occ /hpf (NEGATIVE) H 03/27/19 01:57 - ECG O2 Sat by Pulse Oximetry: 100 (RA) Pulse Ox Interpretation: Normal Medical Decision Making Medical Decision Makin:43 MDM: abdominal pain likely related to cyst Patient recently had a CT that ruled out appendicitis Will repeat ultrasound and blood work to further evaluate for evolution of pathology Will provide supportive care Orders: --BMP --CBC --Urine preg --Urine dip --Toradol 30 mg IM --UA --Transvag US 03:57 Transvaginal US Findings: The uterus measures 7x4x5 cm. Thickened endometrium measuring 15 mm. Trace amount of free fluid in the pelvic cul-de-sac. The left ovary measures 3.3x2.2x1.5 cm with normal follicles. The right ovary measures 3.6x2.8x2.8 cm. Cyst with debris measuring 2.3 cm. Impression: Endometrioma versus hemorrhagic cyst of the right ovary. This has decreased in size. No evidence of torsion. 04:12 Discussed results with patient. Strongly encouraged her to follow up with her fisherman helper and explained that she may need a cystoscopy. Will recommend Toradol and rest. Patient is well appearing upon discharge, states she feels much better and understands need for follow up. Scribe Attestation: Documented by Melonie Garcia, acting as a scribe Melissa Graham MD Provider Scribe Attestation: All medical record entries made by the Scribe were at my direction and personally dictated by me. I have reviewed the chart and agree that the record accurately reflects my personal performance of the history, physical exam, medical decision making, and the department course for this patient. I have also personally directed, reviewed, and agree with the discharge instructions and disposition. Disposition - Clinical Impression Clinical Impression: Ovarian cyst - Patient ED Disposition Is Patient to be Admitted: No - Disposition Referrals: Mukund Chand [Outside] Disposition: Routine/Home Disposition Time: 04:15 Condition: IMPROVED Prescriptions: Ketorolac Tromethamine [Toradol] 10 mg PO BID #20 tab Instructions: Ovarian Cysts Forms: [employer] (Croatian)
[2019-03-27 04:46] VITALS: BP 112/67; PULSE 66; RESP 19; TEMP 98
[2019-03-27 06:12] VITALS: O2SAT 100
--- NOTE | 2019-03-27 13:19 | US ---
Date of service: 03/27/2019 HISTORY: continued RLQ pain, hx of cyst COMPARISON: 03/17/2019. TECHNIQUE: Transvaginal pelvic ultrasound was performed. FINDINGS: UTERUS: Measures 7.0 x 4.0 x 5.0 cm. Anteverted, normal in size and appearance. No fibroid or other mass lesion seen. ENDOMETRIUM: Measures 15 mm in diameter. Normal in appearance. CERVIX: No cervical abnormality identified. RIGHT OVARY: Measures 3.6 x 2.8 x 2.8 cm. No solid mass. Normal flow. There is a 2.3 x 1.7 x 1.8 cm hypoechoic lesion without central or peripheral increased vascularity LEFT OVARY: Measures 3.8 x 1.5 x 2.2 cm. No solid mass. Normal flow. FREE FLUID: No significant free fluid noted. OTHER FINDINGS: None. IMPRESSION: Redemonstration of 2.3 x 1.7 x 1.8 cm hemorrhagic cyst versus endometrioma in the right ovary. No evidence for torsion.
== END 2019-03-27 04:45 | disposition home or self-care (01) ==
LOC: H.ER 00:18
DX: N83.201 Unspecified ovarian cyst, right side (principal)
CPT/HCPCS: 76830; 80048; 81003; 81025; 85025; 96374; 99284; J1885